=== PATIENT | female | born 1985 | race Caucasian/White ===

== ENCOUNTER 2018-01-25 15:34 | Emergency (ER) | payer SELFPAY ==
[2018-01-25 17:44] LABS: Urine Blood 3+ (NEG); Urine Glucose NEGATIVE (NEG); Urine Protein 1+ (NEG); Urine Specific Gravity 1.025 (1.005-1.030); Urine pH 5.5 (5.0-7.0)
--- NOTE | 2018-01-25 18:28 | ER ---
Nurse's Notes [facility] Name: Adela Hartmann Age: 32 yrs Sex: Female : 1985 Arrival Date: 01/25/2018 Time: 15:36 Bed 26 Private MD: None, None Diagnosis: Low back pain;Dysuria Presentation: 01/25 15:44 Presenting complaint: Patient states: my lower back, middle part, is hurting, for 4-5 hj days and im very weak; reports tingling on bilateral legs;. Transition of care: patient was not received from another setting of care. Onset of symptoms was January 25, 2018. Initial Sepsis Screen: Does the patient meet any 2 criteria? No. Patient's initial sepsis screen is negative. Does the patient have a suspected source of infection? No. Patient's initial sepsis screen is negative. Care prior to arrival: None. 15:44 Method Of Arrival: Ambulatory 15:44 Acuity: GWYN 4 hj Triage Assessment: 15:46 General: Appears in no apparent distress. uncomfortable, Behavior is calm, cooperative, hj appropriate for age. Pain: Complains of pain in lumbar area. Musculoskeletal: Circulation, motion, and sensation intact. Capillary refill < 3 seconds. 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 - Social history:: Smoking status: Patient/guardian denies using tobacco, never smoked. Screenin:21 Abuse screen: Denies threats or abuse. Nutritional screening: No deficits noted. tl3 Tuberculosis screening: No symptoms or risk factors identified. Fall Risk None identified. Assessment: 17:21 General: Appears in no apparent distress. comfortable, well groomed, well developed, tl3 well nourished, Behavior is calm, cooperative, appropriate for age. Pain: Complains of pain in low back area, right flank. Neuro: Level of Consciousness is awake, alert, obeys commands, Oriented to person, place, time, situation, Appropriate for age. Cardiovascular: Heart tones S1 S2 present Capillary refill < 3 seconds in bilateral fingers. Respiratory: Breath sounds are clear bilaterally. GI: No signs and/or symptoms were reported involving the gastrointestinal system. : Urine is Reports burning with urination. EENT: No signs and/or symptoms were reported regarding the EENT system. Derm: No signs and/or symptoms reported regarding the dermatologic system. Musculoskeletal: No signs and/or symptoms reported regarding the musculoskeletal system. 18:43 Reassessment: Patient appears in no apparent distress at this time. No changes from tl3 previously documented assessment. Patient and/or family updated on plan of care and expected duration. Pain level reassessed. Patient is alert, oriented x 3, equal unlabored respirations, skin warm/dry/pink. Vital Signs: 15:46 BP 130 / 88; Pulse 100; Resp 18; Temp 97.5(TE); Pulse Ox 100% on R/A; Weight 73.48 kg; hj Height 5 ft. 0 in. (152.40 cm); Pain 7/10; 18:43 BP 124 / 82; Pulse 94; Resp 18; Pulse Ox 100% ; tl3 15:46 Body Mass Index 31.64 (73.48 kg, 152.40 cm) ED Course: 15:36 Patient arrived in ED. mr 15:36 None, None is Private Physician. mr 15:45 Triage completed. hj 15:47 Arm band placed on right wrist. hj 16:49 Idalmis Chacko, FAREED is Primary Nurse. rk2 16:49 Gian Jimenez PA is PHCP. cp 16:49 Valentín Gramajo MD is Attending Physician. cp 16:59 Urine collected: clean catch specimen, tea colored, blood tinged. dh3 17:21 No apparent distress. Resting quietly. Awaiting lab results. tl3 17:21 Patient has correct armband on for positive identification. Bed in low position. Call tl3 light in reach. Side rails up X 1. Adult w/ patient. 17:21 No provider procedures requiring assistance completed. tl3 18:08 Patient moved to radiology via wheelchair. kc2 18:08 X-ray completed. Patient tolerated procedure well. kc2 18:08 Patient moved back from radiology. kc2 18:43 Patient did not have IV access during this emergency room visit. tl3 19:25 Lumbar Spine (3 Views) XRAY In Process Unspecified. EDMS Administered Medications: No medications were administered Outcome: 18:27 Discharge ordered by . cp 18:43 Discharged to home ambulatory. tl3 18:43 Condition: good 18:43 Discharge instructions given to patient, family, Instructed on discharge instructions, follow up and referral plans. medication usage, Demonstrated understanding of instructions, follow-up care, medications, Prescriptions given X 4. 18:45 Patient left the ED. tl3 Signatures: Dispatcher [employer] EDWI Richter Jennifer stokes Qasim Lange, RN RN hj Gian Jimenez PA PA Maura Rousseau 2 Anat Kyle 3 Idalmis Chacko RN RN rk2 Shantel Chan RN RN tl3 Corrections: (The following items were deleted from the chart) 15:48 15:46 Pulse 100bpm; Resp 18bpm; Pulse Ox 100% RA; Temp 97.5F Temporal; 73.48 kg; Height hj 5 ft. 0 in.; BMI: 31.6; Pain 7/10; hj
--- NOTE | 2018-01-25 18:29 | EDPHYS ---
Physician Documentation [facility] Name: Adela Hartmann Age: 32 yrs Sex: Female : 1985 Arrival Date: 01/25/2018 Time: 15:36 Bed 26 Private MD: None, None ED Physician Valentín Gramajo HPI: 01/25 17:05 This 32 yrs old Female presents to ER via Ambulatory with complaints of Back cp Pain. 17:05 The patient presents with pain that is acute, with no known mechanism of injury. The cp symptoms are located in the low back. Onset: The symptoms/episode began/occurred 4-5 days. The pain does not radiate. Associated signs and symptoms: Pertinent negatives: abdominal pain, chest pain, constipation, fever, incontinence, numbness. 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 - Social history:: Smoking status: Patient/guardian denies using tobacco, never smoked. ROS: 17:10 Constitutional: Negative for body aches, chills, fever, poor PO intake. cp 17:10 Eyes: Negative for injury, pain, redness, and discharge. cp 17:10 ENT: Negative for drainage from ear(s), ear pain, sore throat, difficulty swallowing, cp difficulty handling secretions. 17:10 Cardiovascular: Negative for chest pain, edema, palpitations. 17:10 Respiratory: Negative for cough, shortness of breath, wheezing. 17:10 Abdomen/GI: Negative for abdominal pain, vomiting, diarrhea, constipation, anorexia, cp black/tarry stool, rectal bleeding, bowel incontinence. 17:10 Back: Positive for pain at rest, pain with movement, of the low back area. 17:10 : Positive for urinary frequency, Negative for hematuria, difficulty urinating, bladder incontinence, vaginal bleeding, vaginal discharge. 17:10 Skin: Negative for cellulitis, rash. 17:10 Neuro: Negative for altered mental status, dizziness, headache, numbness, weakness. 17:10 All other systems are negative. Exam: 17:15 Constitutional: The patient appears in no acute distress, alert, non-toxic, well cp developed, well nourished. 17:15 Head/Face: Normocephalic, atraumatic. cp 17:15 Eyes: Periorbital structures: appear normal, Conjunctiva: normal, no exudate, no cp injection, Lids and lashes: appear normal, bilaterally. 17:15 ENT: External ear(s): are unremarkable, Nose: is normal, Mouth: Lips: moist, Oral cp mucosa: moist, Posterior pharynx: is normal, airway is patent, no erythema, no exudate. 17:15 Neck: ROM/movement: is normal, is supple, without pain, no range of motions limitations, no nuchal rigidity. 17:15 Chest/axilla: Inspection: normal, Palpation: is normal, no crepitus, no tenderness. 17:15 Cardiovascular: Rate: tachycardic, Rhythm: regular, Edema: is not appreciated, JVD: is cp not appreciated. 17:15 Respiratory: the patient does not display signs of respiratory distress, Respirations: normal, no use of accessory muscles, no retractions, no splinting, no tachypnea, labored breathing, is not present, Breath sounds: are clear throughout, no decreased breath sounds, no stridor, no wheezing. 17:15 Abdomen/GI: Inspection: abdomen appears normal, Bowel sounds: active, all quadrants, Palpation: abdomen is soft and non-tender, in all quadrants, rebound tenderness, is not appreciated, voluntary guarding, is not appreciated, involuntary guarding, is not appreciated. 17:15 Back: pain, that is mild, of the low back area, ROM is normal, CVA tenderness, is absent. 17:15 Musculoskeletal/extremity: Exam is negative for decreased range of motion, deformity, injury. 17:15 Skin: cellulitis, is not appreciated, no rash present. 17:15 Neuro: Orientation: to person, place \T\ time. Mentation: lucid, able to follow commands, Motor: moves all fours, strength is normal, Sensation: no obvious gross deficits, Gait: is steady, Deep tendon reflexes are 2+ (normal) in the right patellar, right Achilles, left patellar and left Achilles. Vital Signs: 15:46 BP 130 / 88; Pulse 100; Resp 18; Temp 97.5(TE); Pulse Ox 100% on R/A; Weight 73.48 kg; hj Height 5 ft. 0 in. (152.40 cm); Pain 7/10; 18:43 BP 124 / 82; Pulse 94; Resp 18; Pulse Ox 100% ; tl3 15:46 Body Mass Index 31.64 (73.48 kg, 152.40 cm) hj MDM: 16:49 Patient medically screened. cp 18:25 Data reviewed: vital signs, nurses notes, lab test result(s), radiologic studies, plain cp films. 18:25 Differential diagnosis: Pyelonephritis sprain, UTI, strain, cauda equina, spinal cp stenosis. Counseling: I had a detailed discussion with the patient and/or guardian regarding: the historical points, exam findings, and any diagnostic results supporting the discharge/admit diagnosis, lab results, radiology results, the need for outpatient follow up, a family practitioner, to return to the emergency department if symptoms worsen or persist or if there are any questions or concerns that arise at home. 01/25 17:06 Order name: Urine Dipstick--Ancillary (enter results); Complete Time: 17:55 bd 01/25 17:55 Interpretation: Normal except: UKET 1+; UBLD 3+; UPROT 1+; UESTR 1+. 01/25 17:06 Order name: Urine --Ancillary (enter results); Complete Time: 17:55 bd 01/25 16:50 Order name: Urine Dipstick-Ancillary (obtain specimen); Complete Time: 17:00 cp 01/25 17:05 Order name: Lumbar Spine (3 Views) XRAY 01/25 17:56 Order name: Urine Microscopic Only 01/25 17:56 Order name: Urine Culture 01/25 16:50 Order name: Urine Test (obtain specimen); Complete Time: 17:00 cp Administered Medications: No medications were administered Disposition: 18:47 Co-signature as Attending Physician, Valentín Gramajo MD. rn Disposition: 01/25/18 18:27 Discharged to Home. Impression: Low back pain, Dysuria. - Condition is Stable. - Discharge Instructions: Back Pain, Adult, Constipation, Adult, Dysuria, Back Exercises, [id number]. - Prescriptions for Naprosyn 500 mg Oral Tablet - take 1 tablet by ORAL route 2 times per day take with food; 20 tablet. Miralax 17 gram/dose Oral - take 1 packet by ORAL route once daily dilute powder in 8 ounces of water or juice; 15 packet. Cyclobenzaprine 10 mg Oral Tablet - take 1 tablet by ORAL route every 8 hours As needed no driving while taking medications; 15 tablet. Macrobid 100 mg Oral Capsule - take 1 capsule by ORAL route every 12 hours for 5 days; 10 capsule. - Work release form, Medication Reconciliation Form, Thank You Letter, Antibiotic Education, Prescription Opioid Use form. - Follow up: Private Physician; When: 2 - 3 days; Reason: Recheck today's complaints. - Problem is new. - Symptoms are unchanged. Signatures: Dispatcher [employer] EDMS Valentín Gramajo MD MD rn Joaquin, Henry, RN RN hj Page, Corey, PA PA cp Lowrey, Tammy, RN RN tl3 Corrections: (The following items were deleted from the chart) 18:45 18:27 01/25/2018 18:27 Discharged to Home. Impression: Low back pain; Dysuria. tl3 Condition is Stable. Forms are Medication Reconciliation Form, Thank You Letter, Antibiotic Education, Prescription Opioid Use. Follow up: Private Physician; When: 2 - 3 days; Reason: Recheck today's complaints. Problem is new. Symptoms are unchanged. cp
[2018-01-25 18:42] LABS: Urine Bacteria 20-50 /HPF (<20); Urine Culture Reflex Order NOT NEEDED; Urine Mucus 2+ /HPF (NONE SEEN); Urine RBC 20-50 /HPF (NONE SEEN)
--- NOTE | 2018-01-25 19:40 | RAD REPORT ---
EXAM DESCRIPTION: RAD - Lumbar Spine 3 Views - 01/25/2018 6:11 pm CLINICAL HISTORY: Back pain COMPARISON: None. FINDINGS: A three-view lumbar spine examination was performed. Lumbar bodies are normal in height an d alignment. No fracture or acute bony process seen. No disc space narrowing. No other significant fi ndings. No pars defects identified. IMPRESSION: Negative Lumbar Spine examination.
== END 2018-01-25 18:45 | disposition home or self-care (01) ==
LOC: ER 15:34
DX: R30.0 Dysuria (principal)
CPT/HCPCS: 72100; 81003; 81015; 81025; 87086; 87088; 99283

== ENCOUNTER 2018-11-11 22:38 | Emergency (ER) | payer SELFPAY ==
[2018-11-12 01:20] LABS: Urine Blood 2+ (NEG); Urine Glucose NEGATIVE (NEG); Urine Protein NEGATIVE (NEG); Urine pH 5.5 (5.0-7.0)
--- NOTE | 2018-11-12 01:49 | ER ---
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 Care prior to arrival: None. Mechanism of Injury: Fall fall from standing. Trauma event details: Injury occurred in the [facility], Injury occurred: in an institution. Injury occurred: November 11, 2018 Injury occurred at: 18:30. 23:02 Acuity: GWYN 4 23:02 Method Of Arrival: Ambulatory 11/12 00:35 Transition of care: patient was not received from another setting of care. Onset of aa1 symptoms was November 11, 2018 at 18:30. Risk Assessment: Do you want to hurt yourself or someone else? Patient reports no desire to harm self or others. Initial Sepsis Screen: Does the patient meet any 2 criteria? No. Patient's initial sepsis screen is negative. Does the patient have a suspected source of infection? No. Patient's initial sepsis screen is negative. Triage Assessment: 11/11 23:05 General: Appears uncomfortable, well groomed, well developed, Behavior is calm, kl cooperative. Pain: Complains of pain in lumbar area Pain currently is 5 out of 10 on a pain scale. 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 - Social history:: Smoking status: Patient/guardian denies using tobacco. - Ebola Screening: : Patient negative for fever greater than or equal to 101.5 degrees Fahrenheit, and additional compatible Ebola Virus Disease symptoms. Screenin/22 00:31 Abuse screen: Denies threats or abuse. Denies injuries from another. Nutritional aa1 screening: No deficits noted. Tuberculosis screening: No symptoms or risk factors identified. Fall Risk None identified. Assessment: 00:31 General: Appears in no apparent distress. comfortable, Behavior is calm, cooperative, aa1 appropriate for age. Pain: Complains of pain in lumbar area Pain currently is 5 out of 10 on a pain scale. Pain began 1800. Neuro: Level of Consciousness is awake, alert, obeys commands, Oriented to person, place, time, situation, Moves all extremities. Full function Gait is steady. Respiratory: Airway is patent Respiratory effort is even, unlabored, Respiratory pattern is regular, symmetrical. GI: No signs and/or symptoms were reported involving the gastrointestinal system. : No signs and/or symptoms were reported regarding the genitourinary system. EENT: No signs and/or symptoms were reported regarding the EENT system. Derm: Skin is intact, is healthy with good turgor, Skin is pink, warm \T\ dry. normal. Musculoskeletal: Circulation, motion, and sensation intact. Capillary refill < 3 seconds, Range of motion: intact in all extremities. 01:54 Reassessment: Patient appears in no apparent distress at this time. Patient is alert, aa1 oriented x 3, equal unlabored respirations, skin warm/dry/pink. Discussed d/c \T\ f/u instructions with pt; denies questions or concerns at this time. Vital Signs: 11/11 23:06 BP 108 / 78; Pulse 82; Resp 18; Temp 97.8(TE); Pulse Ox 100% on R/A; Pain 5/10; 11/12 00:29 BP 143 / 96; Pulse 66; Resp 16; Pulse Ox 100% on R/A; Pain 5/10; aa1 01:54 BP 119 / 84; Pulse 73; Resp 16; Temp 97.7; Pulse Ox 100% on R/A; Pain 3/10; aa1 ED Course: 11/11 22:44 Patient arrived in ED. ds1 23:04 Triage completed. 11/12 00:29 Francesca Nguyễn, FAREED is Primary Nurse. aa1 00:31 Patient has correct armband on for positive identification. Bed in low position. Call aa1 light in reach. Pulse ox on. NIBP on. Warm blanket given. 01:03 Gian Jimenez PA is PHCP. cp 01:03 Declan Merlos MD is Attending Physician. cp 01:09 Urine collected: clean catch specimen, clear. aa1 01:25 Urine --Ancillary (enter results) Sent. aa1 01:25 Urine Dipstick--Ancillary (enter results) Sent. aa1 01:25 Urine Microscopic Only Sent. aa1 01:26 Patient moved to radiology via wheelchair. kw 01:26 X-ray completed. Patient tolerated procedure well. kw 01:26 Patient moved back from radiology. kw 01:54 No provider procedures requiring assistance completed. Patient did not have IV access aa1 during this emergency room visit. Administered Medications: No medications were administered Outcome: 01:48 Discharge ordered by MD. cp 01:54 Discharged to home ambulatory. aa1 01:54 Condition: good 01:54 Discharge instructions given to patient, Instructed on discharge instructions, follow up and referral plans. medication usage, Demonstrated understanding of instructions, follow-up care, medications, Prescriptions given X 1. 02:10 Patient left the ED. aa1 Signatures: Stephy Feliciano RN RN kl Kern, Alissa, RN RN aa1 Zohra Matias ds1 Lucía Patino Corey, PA PA cp
--- NOTE | 2018-11-12 01:50 | EDPHYS ---
Physician Documentation [facility] Name: Adela Hartmann Age: 33 yrs Sex: Female : 1985 Arrival Date: 11/11/2018 Time: 22:44 Bed 24 Private MD: ED Physician Declan Merlos HPI: 11/12 01:10 This 33 yrs old Female presents to ER via Ambulatory with complaints of Fall cp Injury, Back Pain. 01:10 Details of fall: The patient fell from an upright position, while standing, sweeping cp floor. Onset: The symptoms/episode began/occurred today, at 22:00. Associated injuries: The patient sustained injury to the low back, pain. Severity of symptoms: in the emergency department the symptoms are unchanged. 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 - Social history:: Smoking status: Patient/guardian denies using tobacco. - Ebola Screening: : Patient negative for fever greater than or equal to 101.5 degrees Fahrenheit, and additional compatible Ebola Virus Disease symptoms. ROS: 11/12 01:15 Constitutional: Negative for body aches, chills, fever, poor PO intake. cp 01:15 Eyes: Negative for injury, pain, redness, and discharge. cp 01:15 Neck: Negative for pain with movement, pain at rest, stiffness. 01:15 Cardiovascular: Negative for chest pain. 01:15 Respiratory: Negative for cough, shortness of breath, wheezing. 01:15 Abdomen/GI: Negative for abdominal pain, nausea, vomiting, and diarrhea, black/tarry stool, rectal bleeding. 01:15 Abdomen/GI: Negative for bowel incontinence. 01:15 Back: Positive for pain at rest, pain with movement, Negative for decreased range of motion. 01:15 : Negative for urinary symptoms, flank pain, bladder incontinence. 01:15 Skin: Negative for cellulitis, rash. 01:15 Neuro: Negative for altered mental status, headache, loss of consciousness, weakness. 01:15 All other systems are negative. Exam: 01:22 Constitutional: The patient appears in no acute distress, alert, awake, comfortable, cp non-toxic, well developed, well nourished. 01:22 Head/Face: Normocephalic, atraumatic. cp 01:22 Eyes: Periorbital structures: appear normal, Conjunctiva: normal, Lids and lashes: appear normal, bilaterally. 01:22 ENT: External ear(s): are unremarkable, Nose: is normal, Mouth: Lips: moist, Oral mucosa: moist, Posterior pharynx: is normal, airway is patent. 01:22 Chest/axilla: Inspection: normal, Palpation: is normal, no crepitus, no tenderness. 01:22 Cardiovascular: Rate: normal, Rhythm: regular. 01:22 Respiratory: the patient does not display signs of respiratory distress, Respirations: normal, no use of accessory muscles, no retractions, no splinting, no tachypnea, labored breathing, is not present, Breath sounds: are clear throughout, no decreased breath sounds, no stridor, no wheezing. 01:22 Abdomen/GI: Inspection: abdomen appears normal, Palpation: abdomen is soft and non-tender, in all quadrants. 01:22 Back: pain, that is very mild, of the lumbar area, ROM is normal, Straight leg raises: of both lower extremities does not illicit pain. 01:22 Musculoskeletal/extremity: Exam is negative for decreased range of motion, deformity, injury. 01:22 Neuro: Motor: moves all fours, strength is normal, Sensation: is normal, Deep tendon reflexes are 2+ (normal) in the right patellar, right Achilles, left patellar and left Achilles. Vital Signs: 11/11 23:06 BP 108 / 78; Pulse 82; Resp 18; Temp 97.8(TE); Pulse Ox 100% on R/A; Pain 5/10; kl 11/12 00:29 BP 143 / 96; Pulse 66; Resp 16; Pulse Ox 100% on R/A; Pain 5/10; aa1 01:54 BP 119 / 84; Pulse 73; Resp 16; Temp 97.7; Pulse Ox 100% on R/A; Pain 3/10; aa1 MDM: 01:03 Patient medically screened. cp 01:47 Data reviewed: vital signs, nurses notes, radiologic studies, plain films. Test cp interpretation: by ED physician or midlevel provider: plain radiologic studies. 11/12 01:02 Order name: Urine Microscopic Only 11/12 01:13 Order name: Urine Dipstick--Ancillary (enter results) ia 11/12 01:12 Order name: XRAY Lumbar Spine (3 Views) 11/12 01:13 Order name: Urine --Ancillary (enter results) ia 11/12 01:20 Order name: Urine --Ancillary; Complete Time: 01:36 [facility] 11/12 01:20 Order name: Urine Dipstick-Ancillary; Complete Time: 01:36 [facility] 11/12 01:36 Interpretation: Normal except: UBLD 2+; UESTR TRACE. 11/12 01:02 Order name: Urine Test (obtain specimen); Complete Time: 01:09 11/12 01:02 Order name: Urine Dipstick-Ancillary (obtain specimen); Complete Time: 01:09 Administered Medications: No medications were administered Disposition: 20:41 Co-signature as Attending Physician, Declan Merlos MD. Disposition: 11/12/18 01:48 Discharged to Home. Impression: Low back pain - from fall. - Condition is Stable. - Discharge Instructions: Back Pain, Adult. - Prescriptions for Ibuprofen 800 mg Oral Tablet - take 1 tablet by ORAL route every 8 hours As needed take with food; 30 tablet. - Work release form, Medication Reconciliation Form, Thank You Letter, Antibiotic Education, Prescription Opioid Use form. - Follow up: Private Physician; When: 2 - 3 days; Reason: Recheck today's complaints. - Problem is new. - Symptoms are unchanged. Signatures: Dispatcher [employer] [facility] Stephy Feliciano RN RN kl Kern, Alissa, RN RN aa1 Gian Jimenez PA PA cp Starr, Gregory, MD MD Corrections: (The following items were deleted from the chart) 02:10 01:48 11/12/2018 01:48 Discharged to Home. Impression: Low back pain - from fall. aa1 Condition is Stable. Forms are Medication Reconciliation Form, Thank You Letter, Antibiotic Education, Prescription Opioid Use. Follow up: Private Physician; When: 2 - 3 days; Reason: Recheck today's complaints. Problem is new. Symptoms are unchanged. cp
[2018-11-12 03:00] LABS: Urine Bacteria <20 /HPF (<20); Urine Culture Reflex Order NOT NEEDED; Urine Mucus SLIGHT /HPF (NONE SEEN)
--- NOTE | 2018-11-12 07:58 | RAD REPORT ---
EXAM DESCRIPTION: RAD - Lumbar Spine 3 Views - 11/12/2018 1:31 am CLINICAL HISTORY: Fall, back pain COMPARISON: January 2018 FINDINGS: A three-view lumbar spine examination was performed. Lumbar bodies are normal in height an d alignment. No fracture or acute bony process seen. No disc space narrowing. No pars defects identif ied. Large amount of stool is present dilating the rectum and there is prominent stool volume in the sigmo id colon. This is a similar pattern to comparison. IMPRESSION: No fracture or acute lumbar spine finding.
== END 2018-11-12 02:10 | disposition home or self-care (01) ==
LOC: ER 22:38
DX: M54.5 Low back pain (principal); W18.39XA Other fall on same level, initial encounter; Y93.H3 Activity, building and construction; Y92.9 Unspecified place or not applicable
CPT/HCPCS: 72100; 81003; 81015; 81025; 99284